=== PATIENT | male | born 1990 | race African-American/Black ===

== ENCOUNTER 2023-01-17 12:07 | Emergency (ER) | payer OTHER ==
[~2023-01-17] VITALS: Ht 185.4 cm; Wt 108.9 kg
[2023-01-17 12:11] VITALS: BP_SYST 133; PULSE 100; RESP 18; TEMP 98.3; O2SAT 99
[2023-01-17] MEDS ORDERED: NACL 0.9% 1,000 ML IV ONE (12:30)
[2023-01-17 12:56] LABS: BASOPHILS # (AUTO) 0.1 K/uL (0.0-0.2); EOSINOPHILS # (AUTO) 0.2 K/uL (0.0-0.4); EOSINOPHILS % (AUTO) 2.3 % (0.0-4.0); HEMOGLOBIN 16.7 g/dL (14.0-18.0); LYMPHOCYTES # (AUTO) 2.1 K/uL (1.0-5.5); LYMPHOCYTES % (AUTO) 25.2 % (20.5-51.5); MEAN CORPUSCULAR HEMOGLOBIN 29 pg (27-31); MEAN CORPUSCULAR HGB CONC 33 % (32-36); MEAN CORPUSCULAR VOLUME 89 fL (79.0-98.0); MONOCYTES # (AUTO) 0.3 K/uL (0.0-1.0); NEUTROPHILS # (AUTO) 5.5 K/uL (1.8-7.7); NEUTROPHILS % (AUTO) 67.5 % (40.0-70.0); PLATELET COUNT (AUTO) 311 K/uL (130-430); RED BLOOD CELL COUNT(AUTO) 5.75 MIL/uL (4.2-6.2); RED CELL DISTRIBUTION WIDTH 14.5 % (9.0-15.0); WHITE BLOOD COUNT (AUTO) 8.2 K/uL (4.8-10.8)
[2023-01-17 12:59] LABS: CALCIUM 8.2 mg/dL (8.4-11.0); CREATININE 1.23 mg/dL (0.55-1.30); POTASSIUM 4.2 mmol/L (3.5-5.1)
[2023-01-17 13:10] LABS: TOTAL BILIRUBIN 0.4 mg/dL (0.0-1.0); TOTAL PROTEIN, SERUM 7.6 g/dL (6.4-8.3)
[2023-01-17] MEDS ORDERED: THIAMINE HCL 100 MG/ML VIAL ONE (14:30)
[2023-01-17] MEDS ORDERED: ONDANSETRON HCL 4 MG/2 ML VIAL IVP ONE ×2 (14:30→17:00)
[2023-01-17] MEDS ORDERED: THIAMINE HCL 100 MG in NS 50 ML IV ONE (14:30)
[2023-01-17 17:30] VITALS: BP_SYST 138; PULSE 88; RESP 21; TEMP 98.6; O2SAT 95
== END 2023-01-17 17:46 | disposition home or self-care (01) ==
LOC: SED 12:07
DX: F10.129 Alcohol abuse with intoxication, unspecified (principal); R41.82 Altered mental status, unspecified; Z79.899 Other long term (current) drug therapy; Y90.6 Blood alcohol level of 120-199 mg/100 ml
CPT/HCPCS: 99284; 96365; 96361; 96375; 80053; 85025; 36415; 96376; G0482; J2405; J3411; J7030